=== PATIENT | female | born 1945 | race Caucasian/White ===

== ENCOUNTER 2020-05-03 09:45 | Outpatient (CLI) | payer MEDICARE, OTHER ==
--- NOTE | 2020-05-03 11:51 | MRI ---
MRI BRAIN WITH AND WITHOUT CONTRAST: DATE: 05/03/2020 HISTORY: 74-year-old female follow-up brain tumor D49.6. COMPARISON: 09/30/2019. TECHNIQUE: Multiple sequences obtained in axial, sagittal, and coronal planes; pre and post IV injection of gado linium-based contrast agent: 12 mL MultiHance. FINDINGS: Again noted is the enhancing extra-axial posterior fossa mass abutting the torcular herophili. It nicky sures approximately 1.6 x 1.7 x 1.3 cm. Allowing for technical differences (including different MRI m achines), it has probably not significantly changed. It does not cause vasogenic edema or mass effect on adjacent structures. There is no occlusion of the dural venous sinuses, including the torcular he rophili, although the mass indents it and the straight sinus. There are patchy moderately severe chronic ischemic white matter changes in the seaman radiata and ce ntrum semiovale. The ventricles are normal in size and configuration. No abnormal intra-axial enhance ment. No restricted diffusion. No mass effect, midline shift, or extra-axial fluid collection. There has been no major interval change overall. IMPRESSION: 1. Posterior fossa extra-axial mass abutting the torcula and tentorium is probably unchanged since 0 09/30/2019, consistent with meningioma. 2. Moderate-severe chronic ischemic white matter changes due to small vessel disease. SUKHDEV Good POS: KATELYN
== END 2020-05-03 09:46 | disposition home or self-care (01) ==
LOC: TBSIIMAG 09:45
PROVIDERS: ATTEND Neurological Surgery
DX: D49.6 Neoplasm of unspecified behavior of brain (principal); I67.82 Cerebral ischemia
CPT/HCPCS: 70553

== ENCOUNTER 2021-06-09 14:42 | Outpatient (CLI) | payer MEDICARE, OTHER ==
[~2021-06-09 14:42] MED LIST: Magnevist 469MG/ML 20 ML VIAL ONE
== END 2021-06-09 14:43 | disposition home or self-care (01) ==
LOC: TBSIIMAG 14:42
PROVIDERS: ATTEND Neurological Surgery
DX: D49.6 Neoplasm of unspecified behavior of brain (principal); D32.0 Benign neoplasm of cerebral meninges; I67.82 Cerebral ischemia
CPT/HCPCS: 70553; 82565; A9579

== ENCOUNTER 2021-12-15 19:00 | Outpatient (CLI) | payer MEDICARE, OTHER | END 2021-12-15 19:01 | disposition home or self-care (01) | LOC: SLEEPLAB 19:00 | PROVIDERS: ATTEND Family Medicine | DX: G47.33 Obstructive sleep apnea (adult) (pediatric) (principal); G47.10 Hypersomnia, unspecified; R53.83 Other fatigue; R06.83 Snoring; E66.9 Obesity, unspecified; G47.52 REM sleep behavior disorder; Z68.24 Body mass index [BMI] 24.0-24.9, adult | CPT/HCPCS: 95811 ==

== ENCOUNTER 2023-07-19 13:37 | Outpatient (CLI) | payer MEDICARE, OTHER | END 2023-07-19 13:38 | disposition home or self-care (01) | LOC: MRI 13:37 | PROVIDERS: ATTEND Neurological Surgery | DX: D49.6 Neoplasm of unspecified behavior of brain (principal); I63.9 Cerebral infarction, unspecified; D32.0 Benign neoplasm of cerebral meninges; R90.89 Other abnormal findings on diagnostic imaging of central nervous system | CPT/HCPCS: 70553 ==